=== PATIENT | female | born 1990 | race American Indian/Alaskan Native ===

== ENCOUNTER 2019-02-08 14:48 | Outpatient (CLI) | payer OTHER ==
[2019-02-08] MEDS ORDERED: LACTATED RINGERS 1,000 ML IV SCH (15:00)
[2019-02-08 15:14] VITALS: BP 119/64
[2019-02-08] MEDS ORDERED: TYLENOL PO ONE (15:27)
[2019-02-08 16:01] LABS: Amphetamine Screen,Urine PRESUMPTIVE NEGATIVE; Benzodiazepines Screen,Urine PRESUMPTIVE NEGATIVE; Bilirubin,Urine NEG (Negative); Blood,Urine NEG (Negative); Cannabinoid Screen,Urine PRESUMPTIVE NEGATIVE; Cocaine Screen,Urine PRESUMPTIVE NEGATIVE; Color,Urine Yellow (Yellow); Methadone Screen,Urine PRESUMPTIVE NEGATIVE; Opiate Screen,Urine PRESUMPTIVE NEGATIVE; Protein,Urine <15 mg/dL mg/dL (Negative); Urobilinogen,Urine < 2.0 mg/dL (<2.0)
[2019-02-08 16:02] LABS: Mucus,Urine FEW /HPF
== END 2019-02-08 16:40 | disposition home or self-care (01) ==
LOC: TRG 14:48
PROVIDERS: ATTEND Obstetrics & Gynecology
DX: O47.02 False labor before 37 completed weeks of gestation, second trimester (principal); Z3A.27 27 weeks gestation of pregnancy
CPT/HCPCS: 59025; 80307; 81001